=== PATIENT | male | born 1980 | race Two or more races ===

== ENCOUNTER 2025-03-09 17:59 | Emergency (ER) | payer MEDICAID, OTHER ==
[2025-03-11] MEDS ORDERED: PROPOFOL 10 MG/ML 20 ML IV ONE (11:07)
[2025-03-11] MEDS ORDERED: KETAMINE 50mg/ML 1ml syringe ONE (11:07)
[2025-03-11] MEDS ORDERED: HYDROmorphone HCL 2 MG/ML VL/or syr ONE (11:07)
[2025-03-11] MEDS ORDERED: fentaNYL CITRATE 100 MCG/2 ML VL ONE (11:07)
[2025-03-11] MEDS ORDERED: MIDAZOLAM HCL 2MG/2ML 2ml VIAL (1mg/ml) ONE (11:07)
[2025-03-11] MEDS ORDERED: GLYCOPYRROLATE 0.2 MG/ML 1ML VIAL ONE (11:07)
[2025-03-11] MEDS ORDERED: FUROSEMIDE 20 MG/2 ML VIAL ONE (14:41)
--- NOTE | 2025-03-17 14:16 | ECG ---
[facility] Test Date: 2025-03-09 Test Time: 21:53:02 Pat Name: NIKKI BUNN Department: [facility] ED Patient ID: [facility]-[id number] Room: Gender: M Operator Supply: LOYDA : 1980 Requested By: EMERGENCY EMERGENCY Order Number: [id number] Reading MD: Allen Wilson Measurements Intervals [place] Rate: 82 P: 61 GA: 130 QRS: 156 QRSD: 84 T: 60 QT: 379 QTc: 443 Interpretive Statements Sinus rhythm Consider left atrial enlargement Electronically Signed On 03-22-2025 18:45:37 PDT by Allen Wilson Please click the below link to view image of tracing.
== END 2025-03-09 18:00 | disposition left against medical advice (07) ==
LOC: EDBD 17:59 → ER 17:59
DX: R10.9 Unspecified abdominal pain (principal); Z53.21 Procedure and treatment not carried out due to patient leaving prior to being seen by health care provider
CPT/HCPCS: 93005